=== PATIENT | male | born 1960 ===

== ENCOUNTER → 2025-06-05 09:19 | Outpatient (REF) | payer MEDICARE, SELFPAY ==
--- NOTE | 2025-04-28 11:00 | PN.DIAED02 ---
Referral
DSME Class Series Code: [id number]
Referred For: Diabetes Self-Management Training, Medical Nutrition Therapy, Self-Blood Glucose Monitoring, Long-Term Complication Instruction, Accute Complication Instruction, Continuous Glucose Monitoring, Medication management, Care Coordination,
Disease Management
PHI Release Authorization Form Signed: Yes
Demographic
(1) Type 2 diabetes mellitus with hyperglycemia
Status: Chronic
Qualifiers:
Diabetes mellitus long term care administrator insulin use: without skilled nursing use Qualified Code(s): E11.65 - Type 2 diabetes mellitus with hyperglycemia
Code(s): E11.65 - Type 2 diabetes mellitus with hyperglycemia
Patient's primary language-: Slovenian
Education: Advanced college degree
Occupation: Retired
Hours Worked/Week: Other (RETIRED)
- Social
Primary Support Person: Self & spouse
Primary Care Takers: Self & spouse
Living Arrangements: Self & spouse
- Learning Methods
Preferred Method: Reading, Video
Barriers to Learning: None
Glycemic Control
- Blood Glucose Monitoring Assessment
Date: 04/20/25 (116 fasting)
Blood glucose monitoring at home: No
- Hyperglycemia Assessment
Experiences Hyperglycemia: No
- Hypoglycemia Assessment
Patient carries glucose source: No
Patient experiences hypoglycemia: No
- Hemoglobin A1c
Date: 01/25/25
A1C Percentage (%): 6.7
Medical History of Diabetes
Family Diabetes History: Father, Grandfather
Previous Diabetes Education: No
Previous visit with Dietitian: No
Complications/Comorbidity/Specialist: Hypertension (Olmesartan 40 mg QD, Amlodipine 10 mg QD), Hyperlipidemia (Atorvastatin 40 mg QD), Metabolic (T2D: Metformin 1000 mg QD)
Measures
- Anthropometrics
Height: 6 ft 3 in
Actual Weight: 235 lb 6.4 oz
- Blood Pressure / Pulse
Blood pressure: 134/71
Pulse: 60
- Diabetes Management
Medical Management for Diabetes: Complete physical exam (01/31/2025), Dental exam (03/07/2025), Dilated eye exam (01/26/2023)
Self-Care
- Tobacco Usage
Do you now, or have you ever smoked?: Never smoked
- Alcohol & Drugs Usage
Drinks Alcohol: Yes
Amount/day: 1-2 drinks per day
- Meals & Dining
Meals & Dining: Patient skips meals: Yes, Food Intolerance / Allergy: Yes (shellfish)
Primary Food Senior Cost Analyst: Self
Primary Icu Specialist: Self
Dining Out Frequency: Never
- Physical Activity
Physical Limitation: No
Patient participates in physical Activity: Yes
Activity Types: walking (45 minutes a day)
Duration: 41-50 minutes
Frequency: 6-7x per week
- Patient-Self Assessment
Diabetes Knowledge: Good
Feelings About Diabetes: Acceptance
General Health: Good
Importance of Health: Extremely
Stress Level: Low
Diabetes Interferes With:: Nothing
Barriers to Diabetes Management: Nothing
Depression Survey Score: 0
- Diabetes Identification
Carries Diabetes Identification: No
Diabetes Identification Information Provided: Yes
Care Plan
- Education Needs
Patient Education Needs: Diabetes disease process, Chronic complications, Acute complications, Medication, Monitoring, Physical activity, Psychosocial Adjustment, Nutritional management
Recommended Diabetes Training Program based on assessment: Outpatient Diabetes Education Program
- Plan of Care
Plan of Care:
04/26/2025 INITIAL DSME CONSULTATION
Met with participant today for registration and initiation of Diabetes Self-management. Pt was recommended by his PCP due to HbA1c of 6.7%
on 01/25/2025 with% on 04/01/2025. He just started Metformin 1000 mg QD.
He does not monitor his glucose, states his MD never discussed this with him. I provided sample of [employer] glucose meter and supplies. Demonstrated how to monitor glucose and recommended he check once a day in the AM and alternate 2 hours
after meals and review with provider. BS today 116 fasting. Provided [employer] Next glucometer sample kit
We reviewed the complications of diabetes, and reinforced the importance of exercise to help lower glucose. He currently walks 45 minutes a day.
I provided list of endocrinologists if he would prefer to see in the future, glucose tracking log, self care guidelines and diabetes management booklet. He plans to contact his insurance company today for preferred brand of glucometer and will
contact us with this information to facilitate ordering additional glucose testing supplies.
He contacted his insurance company and was informed he needs to meet his individual deductible first before coverage of DSME class begins. He has phone # for office if additional needs arise prior to class.
--- NOTE | 2025-04-28 11:13 | PN.DIAED04 ---
Education Record
- Education Record
Class Attended: Other (initial DMSE consultation)
DSME Class Series Code: [id number]
Instructor: Nurse Practitioner (NIKA Lr)
Pre-Program Knowledge: Needs review / Assistance
Pre-Test Score (%): 85
Post-Program Knowledge: Needs review / Assistance
Goals
- Goal 1
Being Active: Exercise 30 minutes-5 times per week
Goals To Be Evaluated: Exercise 30 mins-5x/week
- Goal 2
Healthy Eating: Make better food choices
Goals To Be Evaluated: Make better food choices
- Goal 3
Monitoring: Follow monitoring schedule
Goals To Be Evaluated: Follow monitoring times
--- NOTE | 2025-06-06 12:37 | PN.DIAED14 ---
This is to notify you that your patient with diabetes, CARLY LITTLE ( 1960), has enrolled in our diabetes self-management classes that are being held at [facility].
These classes will include an introduction to diabetes, diet, medication, exercise and prevention of complications. At the end of our class series, you will receive a report of your patient's participation and progress for your records.
Please contact me at the Diabetes Center, , if there is any particular information regarding your patient that might be helpful to me.
Sincerely,
Raheel MAHER-JEWEL, [facility]
--- NOTE | 2025-06-06 12:37 | PN.DIAED04 ---
Education Record
- Education Record
Class Attended: Class 1
DSME Class Series Code: [id number]
Instructor: Nurse Practitioner (NIKA Lr)
Class Curriculum:
Outpatient Diabetes Education Program:
Class 1 (120 minutes)
Describe the diabetes disease process and treatment options
Diabetes management
Develop personal strategies to promote health and behavior change
Integrate psychosocial adjustment for daily living
Monitor blood glucose and other parameters. Interpret and use the results for self-management decision making
Prevent, detect, and treat acute complications
Class Length (mins): 120
Post-Class 1 Test Score (%): 100
== END ==
LOC: DES 09:19
PROVIDERS: ATTENDING PHYSICIAN Family Medicine
DX: E11.69 Type 2 diabetes mellitus with other specified complication (principal)
CPT/HCPCS: 99078

== ENCOUNTER → 2025-06-12 09:31 | Outpatient (REF) | payer MEDICARE, SELFPAY ==
--- NOTE | 2025-06-13 10:23 | PN.DIAED04 ---
Education Record
- Education Record
Class Attended: Class 2
DSME Class Series Code: [id number]
Instructor: Registered Dietitian (Rebecca Yee, RD, LDN, CDE)
Class Curriculum:
Outpatient Diabetes Education Program:
Class 2 (120 minutes)
Incorporate nutritional management into lifestyle
Understanding nutritional value
Understanding carbohydrate counting
Class Length (mins): 120
== END ==
LOC: DES 09:31
PROVIDERS: ATTENDING PHYSICIAN Family Medicine
DX: E11.69 Type 2 diabetes mellitus with other specified complication (principal)
CPT/HCPCS: 99078

== ENCOUNTER → 2025-06-19 09:54 | Outpatient (REF) | payer MEDICARE, SELFPAY | LOC: DES 09:54 | PROVIDERS: ATTENDING PHYSICIAN Family Medicine | DX: E11.69 Type 2 diabetes mellitus with other specified complication (principal) | CPT/HCPCS: 99078 ==

== ENCOUNTER → 2025-06-26 10:18 | Outpatient (REF) | payer MEDICARE, SELFPAY | LOC: DES 10:18 | PROVIDERS: ATTENDING PHYSICIAN Family Medicine | DX: E11.69 Type 2 diabetes mellitus with other specified complication (principal) | CPT/HCPCS: 99078 ==

== ENCOUNTER → 2025-07-03 09:11 | Outpatient (REF) | payer MEDICARE, SELFPAY ==
--- NOTE | 2025-07-05 09:45 | PN.DIAED04 ---
Education Record
- Education Record
Class Attended: Class 5
DSME Class Series Code: [id number]
Instructor: Registered Nurse (Jenni Pathak RN)
Class Curriculum:
Outpatient Diabetes Education Program:
Class 5 (120 minutes)
Prevent, detect, and treat acute complications
Prevent, detect, and treat chronic complications through risk reduction
Develop personal strategies to address psychosocial issues and concerns
Development of diabetes self-management support plan
Letter to physician with DSMS plan attached sent
Class Length (mins): 120
Post-Program Knowledge: Demonstrates competency
Post-Test Score (%): 85
Post-Program Assessment
- Post-Program Assessment
Actual Weight: 231 lb 3.2 oz
Blood pressure: 120/82
Post-Program Depression Survey Score: 1
Reviewing Previous Goals?: Yes
Pre-Program Depression Survey Score: 0
- Goals 1 Evaluation
Goals To Be Evaluated: Exercise 30 mins-5x/week
- Goals 2 Evaluation
Goals To Be Evaluated: Make better food choices
- Goals 3 Evaluation
Goals To Be Evaluated: Follow monitoring times
--- NOTE | 2025-07-05 09:46 | PN.DIAED16 ---
This is to notify you that your patient with diabetes, CARLY LITTLE ( 1960), has attended the entire series of Diabetes Self-Management Education Classes.
Class 1 (120 minutes): Diabetes Overview - monitoring, stress/psychosocial adjustment, support, goal setting
Class 2 (120 minutes): Meal Planning - serving sizes, menu plans
Class 3 (120 minutes): Introduction to Carbohydrate Counting, Analyzing Food Labels
Class 4 (120 minutes): Medication, Exercise and Activity
Class 5 (120 minutes): Sick Day Management, Strategies to Reduce Complications, Problem Solving, Resources
The following behavioral goals were identified:
Exercise 30 mins-5x/week
Make better food choices
Follow monitoring times
A follow-up call will be made within three to six months to evaluate attainment of these goals and to check post-program Hemoglobin A1c and overall progress. All class participants are encouraged to contact me if I can be any further assistance in
learning how to manage their diabetes.
Sincerely,
Raheel MAHER-, [facility]
== END ==
LOC: DES 09:11
PROVIDERS: ATTENDING PHYSICIAN Family Medicine
DX: E11.69 Type 2 diabetes mellitus with other specified complication (principal)
CPT/HCPCS: 99078